=== PATIENT | male | born 1955 | race Caucasian/White ===

== ENCOUNTER → 2017-11-18 | Outpatient (CLI) | payer BC | LOC: FIMAGING 16:33 | PROVIDERS: ATTEND Internal Medicine Hematology & Oncology | DX: R05 Cough (principal); J98.4 Other disorders of lung; C18.7 Malignant neoplasm of sigmoid colon ==

== ENCOUNTER 2017-12-03 08:27 | Emergency (ER) | payer BC ==
--- NOTE | 2017-12-03 09:07 | EDPHY ---
H & P Time Seen by Provider: 12/03/17 09:06 HPI/ROS: Chief complaint. Coughing up blood HPI. 62-year-old male presents emergency department with complaint of coughing up blood. He has had a cough for the last week. However this morning he has been coughing up bright red blood some of which is been mixed with sputum but otherwise just bright red blood. He has some exertional dyspnea. No fever. The patient has metastatic colon cancer with mets to his lungs. No recent fever. No chest discomfort. No unusual leg pain or swelling. Not normally on oxygen at home ROS Constitutional. no fever/chills, no weakness Eyes. no problems with vision ENT. no sore throat, no nasal drainage Cardiovascular. no chest pain Respiratory. Shortness of breath and coughing up blood Abdominal. no abdominal pain, no nausea/vomiting, no diarrhea . no problems urinating MS. no calf pain/swelling, no neck/back pain, no joint pain Skin. no rash Lymph. no swollen glands Neuro. no headache, no dizziness, no difficulty walking or with speech Past Medical/Surgical History: Metastatic colon cancer Social History: , nonsmoker, no alcohol Smoking Status: Former smoker Physical Exam: General Appearance: Alert well-developed male moderate distress vital signs significant for O2 saturation on room air 84% Eyes: Pupils equal and round no pallor or injection. ENT, Mouth: Mucous membranes are moist. Respiratory: No retractions. Diffuse inspiratory and expiratory rhonchi Cardiovascular: Regular rate and rhythm. Gastrointestinal: Abdomen is soft and nontender, no masses, bowel sounds normal. Neurological: Awake and alert, sensory and motor exams grossly normal. Skin: Warm and dry, no rashes. Musculoskeletal: Neck is supple nontender. Extremities symmetrical, full range of motion. Psychiatric: Patient is oriented X 3, there is no agitation. Constitutional: Initial Vital Signs Temperature (C) 36.8 C 12/03/17 08:40 Heart Rate 89 12/03/17 08:40 Respiratory Rate 18 12/03/17 08:40 Blood Pressure 130/81 H 12/03/17 08:40 O2 Sat (%) 84 L 12/03/17 08:40 O2 Delivery Mode Nasal Cannula O2 (L/minute) 2 Allergies/Adverse Reactions: No Known Allergies Allergy (Unverified 12/03/17 08:45) Home Medications: Medication Instructions Recorded Citalopram 12/03/17 LORazepam 12/03/17 Ropinirole HCl 12/03/17 Tessalon Pearles 12/03/17 Medical Decision Making - Diagnostics Imaging Results: Imaging Impressions Chest/Thorax CTA 12/03/17 09:20 Impression: 1. No evidence of pulmonary embolus using CT protocol. 2. Extensive bilateral pulmonary nodules some with cavitary components compatible with metastatic disease. The cavitary components could be related to central necrosis possibly from chemotherapy treatment. Metastatic lesions associated with bronchi as well as adjacent to vessels could contribute to hemoptysis. Bilateral septic emboli are felt to be possible but less likely. Findings discussed with Clive Hanley M.D. at 10:55 hour, 12/03/2017. Procedures: IV normal saline ED Course/Re-evaluation: On serial evaluations patient has not coughed up any more blood here in the department. We have arranged For home oxygen for the patient. I consulted and discussed the case with Dr. Jarrell on-call for Dr. navarro who is comfortable with outpatient management. The patient would prefer outpatient management. He seems stable at this point in time but we discussed hemoptysis in the possibly that this could return and be worse. He will return should he be worse. Otherwise he will follow up with Dr. Navarro in the next 1-2 days for further evaluation. Differential Diagnosis: Likely the hemoptysis coming from 1 of his cavitary metastatic lesions. No evidence for massive hemoptysis or respiratory embarrassment. He is hypoxic but apparently had been already hypoxic as the home oxygen was previously ordered and we just ensured that the patient gets his home oxygen delivered today. - Data Points Laboratory Results: Laboratory Results 12/03/17 09:10 12/03/17 09:10 12/03/17 12/03/17 12/03/17 09:10 09:10 09:10 WBC 12.49 10^3/uL H 10^3/uL (3.80-9.50) RBC 4.68 10^6/uL 10^6/uL (4.40-6.38) Hgb 13.4 g/dL L g/dL (13.7-17.5) Hct 40.8 % % (40.0-51.0) MCV 87.2 fL fL (81.5-99.8) MCH 28.6 pg pg (27.9-34.1) MCHC 32.8 g/dL g/dL (32.4-36.7) RDW 14.5 % % (11.5-15.2) Plt Count 204 10^3/uL 10^3/uL (150-400) MPV 10.9 fL fL (8.7-11.7) Neut % (Auto) 72.0 % % (39.3-74.2) Lymph % (Auto) 12.1 % L % (15.0-45.0) Atkinson % (Auto) 7.8 % % (4.5-13.0) Eos % (Auto) 5.0 % % (0.6-7.6) Baso % (Auto) 0.7 % % (0.3-1.7) Nucleat RBC Rel Count 0.0 % % (0.0-0.2) Absolute Neuts (auto) 8.99 10^3/uL H 10^3/uL (1.70-6.50) Absolute Lymphs (auto) 1.51 10^3/uL 10^3/uL (1.00-3.00) Absolute Monos (auto) 0.97 10^3/uL H 10^3/uL (0.30-0.80) Absolute Eos (auto) 0.63 10^3/uL H 10^3/uL (0.03-0.40) Absolute Basos (auto) 0.09 10^3/uL 10^3/uL (0.02-0.10) Absolute Nucleated RBC 0.00 10^3/uL 10^3/uL (0-0.01) Immature Gran % 2.4 % H % (0.0-1.1) Immature Gran # 0.30 10^3/uL H 10^3/uL (0.00-0.10) PT 13.7 SEC SEC (12.0-15.0) INR 1.03 (0.83-1.16) D-Dimer 1.55 ug/mLFEU H ug/mLFEU (0.00-0.50) Sodium 145 mEq/L mEq/L (135-145) Potassium 3.9 mEq/L mEq/L (3.5-5.2) Chloride 106 mEq/L mEq/L (97-110) Carbon Dioxide 27 mEq/l mEq/l (22-31) Anion Gap 12 mEq/L mEq/L (8-16) BUN 14 mg/dL mg/dL (7-23) Creatinine 1.0 mg/dL mg/dL (0.7-1.3) Estimated GFR > 60 Glucose 86 mg/dL mg/dL (70-100) Calcium 9.0 mg/dL mg/dL (8.5-10.4) Medications Given: Discontinued Medications Sodium Chloride (Ns) 1,000 mls @ 0 mls/hr IV ONCE ONE; Wide Open PRN Reason: Protocol Stop: 12/03/17 09:20 Last Admin: 12/03/17 09:32 Dose: 1,000 mls Departure - Departure Disposition: Home, Routine, Self-Care Clinical Impression: Hemoptysis Condition: Fair Instructions: Hemoptysis (ED) Additional Instructions: Use the oxygen at home. Did return for worsening breathing or coughing up blood. Follow up with Dr. Navarro in the next 1-2 days. Referrals: NONE *PRIMARY CARE P,. [Primary Care Provider] - As per Instructions Beau Navarro MD [Medical Doctor] - 1-2 days without fail
[2017-12-03] MEDS ORDERED: NS 1,000 ML IV ONE (09:19)
[2017-12-03 09:32] LABS: PLATELET COUNT 204 10^3/uL (150-400)
[2017-12-03 09:34] LABS: INR 1.03 (0.83-1.16); PROTIME(PATIENT) 13.7 SEC (12.0-15.0)
[2017-12-03] MEDS ORDERED: IOPAMIDOL (ISOVUE 370) 100 ML BTL IV ONE (10:14)
[2017-12-03 10:57] VITALS: PULSE 60; O2SAT 93
[2017-12-03 14:22] VITALS: BP 154/82; RESP 18; TEMP 98.4
== END 2017-12-03 14:19 | disposition home or self-care (01) ==
DX: R04.2 Hemoptysis (principal); E86.9 Volume depletion, unspecified; Z85.038 Personal history of other malignant neoplasm of large intestine; Z85.118 Personal history of other malignant neoplasm of bronchus and lung; Z87.891 Personal history of nicotine dependence
CPT/HCPCS: J1642; Q9967

== ENCOUNTER → 2017-12-15 | Outpatient (CLI) | payer BC ==
[~2017-12-15] MED LIST: GADOBUTROL 10 ML VIAL IVP ONE
== END ==
LOC: FIMAGING 09:07
PROVIDERS: ATTEND Internal Medicine Hematology & Oncology
DX: Z12.89 Encounter for screening for malignant neoplasm of other sites (principal); C78.00 Secondary malignant neoplasm of unspecified lung; C18.7 Malignant neoplasm of sigmoid colon; R51 Headache; R11.2 Nausea with vomiting, unspecified; R93.0 Abnormal findings on diagnostic imaging of skull and head, not elsewhere classified
CPT/HCPCS: A9585